=== PATIENT | female | born 1995 | race Caucasian/White ===

== ENCOUNTER → 2020-04-23 11:52 | Outpatient (BNVA) | payer OTHER, SELFPAY | PROVIDERS: PCP Pediatrics; Visit Provider Advanced Practice Midwife | DX: Z76.89 Persons encountering health services in other specified circumstances (principal) ==

== ENCOUNTER → 2021-06-04 15:49 | Outpatient (BNVA) | payer OTHER, SELFPAY | PROVIDERS: PCP Pediatrics; Visit Provider Advanced Practice Midwife ==

== ENCOUNTER → 2021-06-20 10:23 | Outpatient (BNVA) | payer OTHER, SELFPAY | PROVIDERS: Visit Provider Advanced Practice Midwife | DX: Z30.432 Encounter for removal of intrauterine contraceptive device (principal) | CPT/HCPCS: 58301 ==

== ENCOUNTER → 2021-09-26 16:02 | Outpatient (BNVA) | payer OTHER, SELFPAY | PROVIDERS: Visit Provider Advanced Practice Midwife | DX: Z30.09 Encounter for other general counseling and advice on contraception (principal); M79.89 Other specified soft tissue disorders ==

== ENCOUNTER → 2021-09-26 16:02 | Outpatient (BNVA) | payer OTHER, SELFPAY | PROVIDERS: Visit Provider Advanced Practice Midwife | DX: Z13.89 Encounter for screening for other disorder (principal) ==

== ENCOUNTER 2022-05-28 12:48 | Outpatient (REF) | payer OTHER, SELFPAY ==
[2022-05-28 17:27] LABS: CT PCR NOT DETECTED (Not Detect.); NG PCR NOT DETECTED (Not Detect.)
[2022-05-30 05:48] LABS: HPV mRNA E6/E7 rflx Not Detected (Not Detected)
== END 2022-05-28 12:49 | disposition home or self-care (01) ==
LOC: HO.LNP 12:48
PROVIDERS: Visit Provider Advanced Practice Midwife
DX: Z01.419 Encounter for gynecological examination (general) (routine) without abnormal findings (principal); Z11.51 Encounter for screening for human papillomavirus (HPV)
CPT/HCPCS: 87491; 87591; 87624; 88142

== ENCOUNTER 2024-03-29 14:06 | Outpatient (AMB) | payer OTHER, SELFPAY ==
--- NOTE | 2024-03-29 14:09 | MHC.OFFVIS ---
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 Doing well with no concerns. She tries to eat healthy and stays active with exercise walks at work. Irregular monthly menses, twice a month a week apart, up to two weeks at times. Admits to recent facial hair. Currently is sexually active long-term partner. Open to a future . Taking a multivitamin folic acid. She denies vaginal itching and irritation. STI screening offered; she accepts. Denies family history of breast, ovarian or colon cancer. Last pap smear 2021, negative. 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 Gender identity: Female Female Reproductive History Menstrual Age of Menarche: 13 Duration of menses: 6-7 days Date of last menstrual period: 03/26/24 control method: none Total pregnancies: 0 Date of last pap smear: 05/28/22 (neg pap and hpv) Review of Systems Const All systems reviewed & are unremarkable except as noted in HPI and below Reports as per HPI Eyes Reports no additional complaints ENT Reports no additional complaints Card Reports no additional complaints Resp Reports no additional complaints GI Reports as per HPI and Reports no additional complaints Reports as per HPI Musc Reports no additional complaints Skin/Breast Reports as per HPI Neuro Reports no additional complaints Psych Reports no additional complaints Endo Reports no additional complaints Avi/Lymph Reports no additional complaints Aller/Immun Reports no additional complaints Physical Exam Vital Signs: Last Vital Signs BP 108/70 03/29/24 14:10 BMI result Body Mass Index 37.4 Const General: cooperative, healthy appearing, no acute distress, well developed and alert Orientation/consciousness: patient oriented x3 HEENT Head: Yes normal to inspection Eyes General: appearance normal, both eyes and all related structures Neck Neck: Yes normal visual inspection Thyroid: Thyroid normal Chest Chest palpation & inspection: normal inspection of the chest and other (no puckering, dimpling, peau de orange, retraction, discharge, masses) Breast/axilla inspection: normal inspection of the breasts Breast/axilla palpation: normal palpation of the breasts Resp Effort & Inspection: normal respiratory effort GI Inspection: Yes normal to inspection Palpation (GI): Soft to palpation Rectal Exam - Female: deferred General: Yes bladder normal to palpation External Female Exam: normal external appearance and normal appearance of the urethra Speculum Exam - Vagina: normal appearance of the vagina, normal palpation, normal vaginal discharge and vaginal bleeding (Small amount) Speculum Exam - Cervix: normal appearance of the cervix and normal palpation Bimanual exam- vagina & uterus: normal bimanual exam, normal palpation, uterine size normal, bladder normal to palpation, normal palpation and non-tender Bimanual Exam- Adnexa, other: no masses OB/external & speculum: vaginal bleeding (Small amount) Skin General skin exam: no rashes or lesions noted Rashes: no rashes Neuro General: patient oriented x3 Cognition (Neuro): normal cognition Extrem General: Yes normal to inspection Psych Attitude: cooperative Thought process: Normal thought process present Assessment & Plan Assessment & Plan (1) Encounter for well woman exam with routine gynecological exam: Code(s): Z01.419 - Encounter for gynecological examination (general) (routine) without abnormal findings Category: Medical Plan: Discussed: Current recommendations for pap smears per ASCCP guidelines. Breast awareness and periodic breast exams. Maintain a healthy weight and lifestyle including a well balanced diet and routine exercise. The role of weight management and hormonal levels that affect cycle control. Continue with multivitamin w/ folic acid. She is not interested in control at this time. Plan labs, obtain TSH and CBC with PCP tomorrow okay to reveal on smart phone when back in the office pending ultrasound to discuss plan of care. [facility] services at [facility]/ [place] and other alternatives, if considering. Patient verbalizes understanding and agrees to the plan of care. She was given opportunity to ask questions and all questions were answered to the best of my ability. RTO in one year for annual marketing lead examination. This note is constructed using voice recognition software. While every effort has been made to ensure accuracy, residential sales executive errors may have been included. Orders: Orders Bacterial Vaginosis Panel Today N93.9 - Abnormal uterine and vaginal bleeding, unspecified CT NG by PCR Today N93.9 - Abnormal uterine and vaginal bleeding, unspecified PAP rfx HPV E6/E7 and 16 18/45 Today N93.9 - Abnormal uterine and vaginal bleeding, unspecified, Z01.419 - Encounter for gynecological examination (general) (routine) without abnormal findings 17 Hydroxyprogesterone Today L68.0 - Hirsutism, N92.6 - Irregular menstruation, unspecified Testosterone, Free/Total Today L68.0 - Hirsutism, N92.6 - Irregular menstruation, unspecified Prolactin Today L68.0 - Hirsutism, N92.6 - Irregular menstruation, unspecified US pelvic and transvaginal Today L68.0 - Hirsutism, N92.6 - Irregular menstruation, unspecified Coding Level of Care Code Est Pt Prev Care 18-39y(57176) Diagnoses Encounter for well woman exam with routine gynecological exam Z01.419
[2024-03-29 14:10] VITALS: BP 108/70; BMI 37.4
== END 2024-03-29 15:02 | disposition home or self-care (01) ==
PROVIDERS: Visit Provider Advanced Practice Midwife
DX: N93.9 Abnormal uterine and vaginal bleeding, unspecified (principal); Z01.419 Encounter for gynecological examination (general) (routine) without abnormal findings
CPT/HCPCS: 99395

== ENCOUNTER 2024-03-29 14:06 | Outpatient (REF) | payer OTHER, SELFPAY ==
[2024-03-30 13:41] LABS: CT PCR NOT DETECTED (Not Detect.); NG PCR NOT DETECTED (Not Detect.)
[2024-03-30 14:49] LABS: Bacterial Vaginosis PCR POSITIVE (Negative); Candida Group PCR NOT DETECTED (Not Detect); Candida glab krusei PCR NOT DETECTED (Not Detect); Trichomonas vaginalis PCR NOT DETECTED (Not Detect)
== END 2024-03-29 14:07 | disposition home or self-care (01) ==
LOC: HO.LAB 14:06
PROVIDERS: PCP Student in an Organized Health Care Education/Training Program; Visit Provider Advanced Practice Midwife
DX: Z01.419 Encounter for gynecological examination (general) (routine) without abnormal findings (principal); L68.0 Hirsutism; N93.9 Abnormal uterine and vaginal bleeding, unspecified; N92.6 Irregular menstruation, unspecified
CPT/HCPCS: 0352U; 81025; 87491; 87591; 87625; 88175; 99395

== ENCOUNTER 2024-03-29 14:50 | Outpatient (REF) | payer OTHER, SELFPAY ==
[2024-03-31 05:24] LABS: Prolactin 12.3 ng/mL
[2024-04-06 18:32] LABS: Testosterone, Free 4.6 pg/mL (0.1-6.4); Testosterone, Total 46 ng/dL (2-45)
== END 2024-03-29 14:51 | disposition home or self-care (01) ==
LOC: HO.LNP 14:50
PROVIDERS: Visit Provider Advanced Practice Midwife
DX: Z01.419 Encounter for gynecological examination (general) (routine) without abnormal findings (principal); N92.6 Irregular menstruation, unspecified; L68.0 Hirsutism; N93.9 Abnormal uterine and vaginal bleeding, unspecified
CPT/HCPCS: 83498; 84146; 84402; 84403

== ENCOUNTER 2024-04-04 14:51 | Outpatient (REF) | payer OTHER, SELFPAY | END 2024-04-04 14:52 | disposition home or self-care (01) | LOC: HO.US 14:51 | PROVIDERS: PCP Student in an Organized Health Care Education/Training Program; Visit Provider Advanced Practice Midwife | DX: N92.6 Irregular menstruation, unspecified (principal); L68.0 Hirsutism | CPT/HCPCS: 76830; 76856 ==

== ENCOUNTER 2024-08-04 15:03 | Outpatient (AMB) | payer OTHER, SELFPAY ==
--- NOTE | 2024-08-04 15:04 | A.OFFVIS_ITS ---
Vital Signs 08/04/24 15:53 BP 110/70 Intake Visit Reasons: Lab /Us follow up Paper Finisher: Paper Finisher Present Allergies desogestrel [From Apri] Adverse Reaction (Unknown, Verified 08/04/24 15:55) Hypertension ethinyl estradiol [From Apri] Adverse Reaction (Unknown, Verified 08/04/24 15:55) Hypertension etonogestrel [From Nexplanon] Adverse Reaction (Unknown, Verified 08/04/24 15:55) Rash apples Allergy (Unknown, Uncoded 08/04/24 15:04) Unknown dogs Allergy (Unknown, Uncoded 08/04/24 15:04) Unknown pollen Allergy (Unknown, Uncoded 08/04/24 15:04) Unknown Is last menstrual period known: Yes Last menstrual period: 07/09/24 HPI Comments Details: Patient here today for a follow up pelvic ultrasound and lab work to rule out PCOS. She has a history of irregular menses and facial hair growth. She reports currently she has an elevated red blood cell count at 16.1 and has to see a care team assistant. Had taken Apri in 2021, had HTN and leg edema. Skin rash over the Nexplanon x 2 attempts. Testosterone level was 45, slightly above range of 45. [facility] Medical History (Updated 08/04/24 @ 15:53 by Faith Walters CNM) IBS (irritable bowel syndrome) PCOS (polycystic ovarian syndrome) History of asthma Surgical History Hx of oral surgery Family History (Updated 08/04/24 @ 15:56 by SHIRIN Brito) Mother Asthma Father Asthma Myocardial infarction CAD (coronary artery disease) Maternal Grandfather Lung cancer Liver cancer Hypertension Maternal Grandmother Hypertension Atrial fibrillation Diabetes mellitus Paternal Grandmother Atrial fibrillation Social History Household Members: Significant Other Housing: Apartment Alcohol intake: current Alcohol intake frequency: a few times a month Patient Tobacco Use Status: Never used Tobacco service: No Current occupational status: employed 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 Gender identity: Female Female Reproductive History Menstrual Age of Menarche: 13 Date of last menstrual period: 07/09/24 Review of Systems Const All systems reviewed & are unremarkable except as noted in HPI and below Endo Reports no additional complaints Physical Exam Const General: cooperative, healthy appearing and no acute distress Psych Appearance: well kempt Attitude: cooperative Thought process: Normal thought process present Results Reviewed Results Reviewed: [address] [address] Ultrasound Report Signed Patient: Halima Corona MR#: [id number] : 1995 Acct:[id number] Age/Sex: 28 / F ADM Date: 04/04/24 Loc: HO.US Attending Dr: Faith Walters CNM Ordering Physician: Faith Walters CNM Date of Service: 04/04/24 Procedure(s): US pelvic and transvaginal Accession Number(s): [id number] cc: Alex Gonzalez MD; Faith Walters CNM~ EXAMINATION: US PELVIS CLINICAL INFORMATION: Irregular menses COMPARISON: None available. TECHNIQUE: Ultrasound of the pelvis is performed using both transabdominal and transvaginal transducers along with Doppler. Transvaginal imaging is performed due to inadequate visualization transabdominally. FINDINGS: Uterus: The uterus is anteverted and measures 6.5 x 2.8 x 3.2 cm. The double wall endometrial thickness is 6 mm. The uterus is smooth in contour and has normal myometrial echogenicity. No visible fibroid. Adnexa: Both ovaries are visualized. There is normal color flow to the adnexa. There is no ovarian torsion. There is no pelvic ascites or fluid collection. Right ovary measures 2.9 x 2.2 x 1.9 cm. There are multiple small follicular cysts which are predominantly subcortical. Left ovary measures 2.7 x 2.7 x 2.2 cm. There are greater than 10 small follicular cysts, predominantly subcortical and peripheral US/US pelvic and transvaginal IMPRESSION: 1. Normal-appearing uterus. 2. Multiple small follicular cysts in both ovaries. Correlate clinically for the possibility of polycystic ovarian syndrome. Electronically signed by: Álvaro Medina MD 05/29/2024 11:26 PM [facility] Dictated By: Álvaro Medina MD Signed By: <Electronically signed by Álvaro Medina MD in OV> 05/29/24 2326 DD/ 1515 TD/TT: 04/04/24 1525 Plaster Lather: IGOR Assessment & Plan Assessment & Plan (1) control counseling: Code(s): Z30.09 - Encounter for other general counseling and advice on contraception Category: Medical Plan: Reviewed options available for progesterone only. ParaGard IUD would not benefit cycle. (2) PCOS (polycystic ovarian syndrome): Code(s): E28.2 - Polycystic ovarian syndrome Category: Medical Plan: Discussed: Diagnosis of PCOS. Treatment options reviewed. Plan Reviewed lab work and ultrasound findings along with her symptoms consistent with PCOS diagnosis. Due to history of side effects with control and medical concerns for hematology evaluation, recommend she not initiate progesterone only pills at time. Continue use of condoms. Strongly advised to make her appointments with the care team assistant as recommended. Consider in the future referral to [facility] for information security systems instructor Department for a medically complex patients. The patient expressed understanding and agreement with the plan of care. All of her questions and concerns were addressed to the best of my ability. This note is constructed using voice recognition software. While every effort has been made to ensure accuracy, electrician supervisor errors may have been included. Coding Level of Care Code Est Pt Level 3 (01549) Diagnoses control counseling Z30. PCOS (polycystic ovarian syndrome) E28.2
[2024-08-04 15:53] VITALS: BP 110/70
--- OUTSIDE RECORDS SUMMARY | 2024-08-04 18:21 | XMS_ITS | Data Portability ---
Author Organization [facility], [address] Address [address] [place] [address] Assessment No assessment recorded. Plan of Treatment Reminders Order Date Submit Date Provider Last Modified By Organization Details Last Modified Time Details Appointments None recorded. Lab rapid strep group A, throat 2022 023 [facility], [address] [place], [address], 3 15:14:41 SARS CoV 2 (COVID-19) Ag, QL, IA, upper respiratory specimen [address] [address], [address] [place], [address], 3 15:14:42 urinalysis, dipstick 2022 023 [email or web address] [address] [address], [address] [place], [address], 3 13:41:52 rapid flu (A+B) 2022 023 [email or web address] [address] [address], [address] [place], [address], 3 13:41:52 Referral None recorded. Procedures None recorded. Surgeries None recorded. Imaging None recorded. Medication Orders tobramycin 0.3 %-dexametha sone 0.05 % eye drops,suspe nsion 2022 023 [facility]/Pharmacy #[id number], [address] [facility] [place], [address], 19:55:09 amoxicillin 875 mg-potassiu m clavulanate 125 mg tablet 2022 023 NIKOLE [facility]/Pharmacy #[id number], [address] [facility] [place], [address], 15:14:43 prednisone 10 mg tablet 2022 023 [email or web address] [facility]/Pharmacy #[id number], [address] [facility] [place], [address], 13:22:03 albuterol sulfate 2.5 mg/3 mL (0.083 %) solution for nebulizatio n 2022 023 [email or web address] [facility]/Pharmacy #[id number], [address] [place], [address], 13:43:00 Patient TargetsNo targets recorded. Patient Instructions Encounter Date Encounter Id Patient Instructions Last Modified By Organization Details Last Modified Time 08/15/2022 [id number] viral infections : care instructions [email or web address] Not available 08/15/2022 13:43:23 05/13/2023 [id number] pinkeye: care instructions Not available 05/13/2023 15:14:38 sore throat: car e instructions Not available 05/13/2023 15:14:39 tonsillitis: car e instructions Not available 05/13/2023 15:14:38 Reason for Referral None Reported. Results Created Date Observation Date Name Description Value Unit Range Abnormal Flag Note LastModifiedBy Organization Detail LastModifiedTime 08/16/1908/15/2022 rapid flu (A+B) Unknown Analyte Normal = Negati ve Not Available [address] [place], [address], 08/15/2022 12:39:38 08/16/19 23 08/15/2022 rapid flu (A+B) Unknown Analyte negati ve Not Available [facility] [address] [place], [address], 08/15/2022 12:39:38 08/16/19 23 08/15/2022 rapid flu (A+B) Unknown Analyte Normal = Negati ve Not Available [facility] [address] [place], [address], 08/15/2022 12:39:38 08/16/1908/15/2022 rapid flu (A+B) Unknown Analyte negati ve Not Available [facility] [address] [place], [address], 08/15/2022 12:39:38 08/16/1908/15/2022 urina lysis , dipst ick Unknown Analyte Normal = light yellow Not Available [facility] [address] [place], [address], 08/15/2022 12:39:30 08/16/1908/15/2022 urina lysis , dipst ick Unknown Analyte Yellow Not Available [address] [place] [address] [address] [place], [address], 08/15/2022 12:39:30 08/16/1908/15/2022 urina lysis , dipst ick Unknown Analyte Normal = clear Not Available [facility] [address] [place], [address], 08/15/2022 12:39:30 08/16/1908/15/2022 urina lysis , dipst ick Unknown Analyte Clear Not Available [address] [facility] [address] [place], [address], 08/15/2022 12:39:30 08/16/19 23 08/15/2022 urina lysis , dipst ick Unknown Analyte Normal = negati ve Not Available [address] [place], [address], 08/15/2022 12:39:30 08/16/19 23 08/15/2022 urina lysis , dipst ick Unknown Analyte Negati ve Not Available [address] [place], [address], 08/15/2022 12:39:30 08/16/1908/15/2022 urina lysis , dipst ick Unknown Analyte Normal = Negati ve Not Available [address] [place], [address], 08/15/2022 12:39:30 08/16/19 23 08/15/2022 urina lysis , dipst ick Unknown Analyte Negati ve Not Available [address] [place], [address], 08/15/2022 12:39:30 08/16/19 23 08/15/2022 urina lysis , dipst ick Unknown Analyte Normal = Negati ve Not Available [address] [place], [address], 08/15/2022 12:39:30 08/16/19 23 08/15/2022 urina lysis , dipst ick Unknown Analyte Negati ve Not Available [address] [place], [address], 08/15/2022 12:39:30 08/16/19 23 08/15/2022 urina lysis , dipst ick Unknown Analyte Normal = 1.010, 1.015, 1.020 Not Available [address] [place], [address], 08/15/2022 12:39:30 08/16/1908/15/2022 urina lysis , dipst ick Unknown Analyte 1.[address] [facility] [address] [place], [address], 08/15/2022 12:39:30 08/16/1908/15/2022 urina lysis , dipst ick Unknown Analyte Normal = Negati ve Not Available [facility] [address] [place], [address], 08/15/2022 12:39:30 08/16/1908/15/2022 urina lysis , dipst ick Unknown Analyte Negati ve Not Available [address] [place], [address], 08/15/2022 12:39:30 08/16/19 23 08/15/2022 urina lysis , dipst ick Unknown Analyte Normal = 6.5, 7.0, 7.5, 8.0 Not Available [facility] [address] [place], [address], 08/15/2022 12:39:30 08/16/1908/15/2022 urina lysis , dipst ick Unknown Analyte 5.[address] [facility] [address] [place], [address], 08/15/2022 12:39:30 08/16/1908/15/2022 urina lysis , dipst ick Unknown Analyte Normal = Negati ve Not Available [facility] [address] [place], [address], 08/15/2022 12:39:30 08/16/1908/15/2022 urina lysis , dipst ick Unknown Analyte Negati ve Not Available [address] [place], [address], 08/15/2022 12:39:30 08/16/1908/15/2022 urina lysis , dipst ick Unknown Analyte Normal = 0.2, 1.0 Not Available [facility] [place], [address], 08/15/2022 12:39:30 08/16/1908/15/2022 urina lysis , dipst ick Unknown Analyte 0.2 E.U./d L Not Available [facility] [address] [place], [address], 08/15/2022 12:39:30 08/16/1908/15/2022 urina lysis , dipst ick Unknown Analyte Normal = Negati ve Not Available [facility] [address] [place], [address], 08/15/2022 12:39:30 08/16/1908/15/2022 urina lysis , dipst ick Unknown Analyte Negati ve Not Available [address] [place], [address], 08/15/2022 12:39:30 08/16/1908/15/2022 urina lysis , dipst ick Unknown Analyte Normal = Negati ve Not Available [address] [place], [address], 08/15/2022 12:39:30 08/16/1908/15/2022 urina lysis , dipst ick Unknown Analyte Negati ve Not Available [facility] [place], [address], 08/15/2022 12:39:30 05/13/20 23 05/13/2023 SARS CoV 2 (COVI D-19) Ag, QL, IA, upper respi rator y speci men Unknown Analyte negati ve Not Available [address] [place], [address], 05/13/2023 13:24:13 05/13/20 23 05/13/2023 SARS CoV 2 (COVI D-19) Ag, QL, IA, upper respi rator y speci men Unknown Analyte yes Not Available [address] [place] [address] [address] [place], [address], 05/13/2023 13:24:13 05/13/20 23 05/13/2023 rapid strep group A, throa t Unknown Analyte negati ve Not Available [facility] [place], [address], 05/13/2023 13:24:04 05/13/20 23 05/13/2023 rapid strep group A, throa t Unknown Analyte yes Not Available [address] [place] [address] [address] [place], [address], 05/13/2023 13:24:04 Result Notes None recorded. Problems Name Problem SNOMED Code Status Onset Date Resolution Date Notes Provider Name and Address Organization Details Recorded Time Asthma 420753580 Active Zohra rush, PA - [facility] 3 13:22:40 Irritable bowel syndrome 69391082 Active Zohra rush, PA - [facility] 3 13:22:55 Problem Notes None recorded. Medical Equipment None Reported. Allergies Allergen ID Allergen Name Allergen Category Reaction Reaction Severity Criticality Documentation Date Start Date Code Code System Note Provider Name and Address Organization Details Recorded Time 233782 apple extract food Not available Not available Not available 08/15/2022 20153 65 RxNorm Luciano rush, PA - [facility] 3 12:37:00 No known drug allergies Medications Name Sig Start Date Stop Date Status Note LastModified by Organization Details LastModified Time prednisone 10 mg tablet PLEASE SEE ATTACHED FOR DETAILED DIRECTION S 05/13 completed Not Available Not Available Not Available albuterol sulfate 2.5 mg/3 mL (0.083 %) solution for nebulizatio n INHALE 3 ML VIA NEBULIZER 3 TIMES A DAY FOR 10 DAYS active Not Available Not Available No t Available Apri 0.15 mg-0.03 mg tablet TAKE 1 TABLET BY MOUTH EVERY DAY 05/13 completed Not Available Not Available Not Available epinephrine 0.3 mg/0.3 mL injection, auto-inject or NEEDED FOR ANAPHYLAX IS. KEEP ON HAND AT ALL TIMES. active Not Available Not Available No t Available albuterol sulfate HFA 90 mcg/actuati on aerosol inhaler INHALE 2 PUFFS BY MOUTH EVERY 4 HOURS NEEDED active Not Available Not Available No t Available amoxicillin 875 mg-potassiu m clavulanate 125 mg tablet Take 1 tablet every 12 hours by oral route for 10 days. 2022 active Not Available Not Available Not Avai lable Symbicort 160 mcg-4.5 mcg/actuati on HFA aerosol inhaler INHALE 2 PUFFS TWICE A DAY 05/13 completed Not Available Not Available Not Available Tobradex ST 0.3 %-0.05 % eye drops,suspe nsion INSTILL 1 DROP INTO AFFECTED EYE(S) EVERY 6 HOURS FOR 5 DAYS 2022 active Not Available Not Available Not Avai lable Incruse Ellipta 62.5 mcg/actuati on powder for inhalation INHALE 1 PUFF DAILY 05/13 completed Not Available Not Available Not Available Vitals Date Recorded Body height Body mass index (BMI) Body weight Respiratory rate Body temperature Oxygen saturation Oxygen saturation in Arterial blood by Pulse oximetry Heart rate Pain severity - 0-10 verbal numeric rating [Score] - Reported Systolic blood pressure Diastolic blood pressure Provider Name and Address Organization Details Last Updated DateTime 3 152.4 cm 36.1 kg/m2 27237.5 9 g 16 /min 98.2 [degF] 97 % 97 % 98 /min 7 123 mm[Hg] 82 mm[Hg] Zohra Emeterio PA - [facility] 13:26:35 Date Recorded Body height Body mass index (BMI) Body weight Provider Name and Address Organization Details Last Updated DateTime 08/15/2022 152.4 cm 35.2 kg/m2 62894.63 g Luciano Gifford PA - [facility] 08/15/2022 12:36:42 Social History Question Answer Notes LastModified by Organizat ion Details LastModified Time Tobacco Smoking Status Never Smoker Zohra rush PA - [facility] 05/13/2023 13:23:24 What Is Your Level Of Alcohol Consumption? Occasional [email or web address] Information not available 05/13/2023 Have You Had A Flu Shot This Season? Yes Information not available 05/13/2023 What Was The Date Of Your Most Recent Tobacco Screening? 05/13/2023 [email or web address] Information not available 05/13/2023 Do You Use Any Illicit Or Recreational Drugs? No Information not available 05/13/2023 Have You Recently Traveled Abroad? No Information not available 05/13/2023 Do You Or Have You Ever Used Any Other Forms Of Tobacco Or Nicotine? No [email or web address] Information not available 05/13/2023 Sex: Unknown Functional Status None recorded. Mental Status None recorded. Family History Relationship Description Onset Age of this Age Resolved Age Notes LastModified by Organization Details LastModified Time Father No current problems or disability [email or web address] Not available 05/13 13:23:00 Mother No current problems or disability [email or web address] Not available 05/13 13:23:00 Medical History No medical history recorded. Gynecological History Statement/Question Response Date of LMP 03/18/2023 Is there any chance of ? No LMP Approximate Obstetrics History GPAL:G 0 P 0 0 0 0 Immunizations Vaccine Type Date Status Note Provider Nam e and Address Organization Details Recorded Time Influenza, MDCK, quadrivalent, PF 3 completed Zohra rush PA - [facility] 05/13/2023 13:21:29 meningococcal B, recombinant 9 completed Luciano rush PA - [facility] 08/15/2022 12:36:49 Influenza, MDCK, quadrivalent, PF 8 completed Luciano Ирина null, PA - [facility] 08/15/2022 12:36:49 COVID-19, mRNA, LNP-S, PF, 30 mcg/0.3 mL dose 1 completed Luciano Ирина null, PA - [facility] 08/15/2022 12:36:49 COVID-19, mRNA, LNP-S, PF, 30 mcg/0.3 mL dose 1 completed Luciano Ирина null, PA - [facility] 08/15/2022 12:36:49 Tdap 8 completed Luciano Ирина null, PA - [facility] 08/15/2022 12:36:49 Meningococcal MCV4O 9 completed Luciano Ирина null, PA - [facility] 08/15/2022 12:36:49 Influenza, split virus, quadrivalent, PF 1 completed Luciano Ирина null, PA - [facility] 08/15/2022 12:36:49 Influenza, split virus, quadrivalent, PF 5 completed Luciano Ирина null, PA - [facility] 08/15/2022 12:36:49 Influenza, split virus, quadrivalent, PF 9 completed Luciano Ирина null, PA - [facility] 08/15/2022 12:36:49 Past Encounters Encounter ID Performer Location Encounter Start Date Encounter Closed Date Diagnosis/Indication Diagnosis SNOMED-CT Code Diagnosis ICD10 Code Diagnosis Note [id number] [address] [address] [place] [address] 12/11/2021 08:14:36 12/11/2021 09:46:20 [id number] [place] [address] [facility] [address] [place] [address] 08/15/2022 11:14:51 08/15/2022 13:46:35 Acute asthma 231620270 J45.901 Viral syndrome 683250721 B34.9 [id number] Raisa Bradley, [employer] [address] [address] [facility] TIFFANIE hahn [address] 05/13/2023 13:03:04 05/13/2023 15:17:27 Acute tonsillitis 07647708 J03.90 Tonsilliti s is an infection of the tonsils that is caused by bacteria or a virus. The tonsils are in the back of the throat and are part of the immune system. Tonsilliti s typically lasts from a few days up to a couple of weeks.Tons illitis caused by a virus goes away on its own. Tonsilliti s caused by the bacteria that causes strep throat is treated with antibiotic s.You and your doctor may consider surgery to remove the tonsils (tonsillec aditya) if you have serious complicati ons or repeat infections .Follow-up care is a sheets part of your treatment and safety. Be sure to make and go to all appointmen ts, and call your doctor if you are having problems. It's also a good idea to know your test results and keep a list of the medicines you take. Acute conj unctivitis of bilateral eyes [id number] 03897 H10.33 Pinkeye is redness and swelling of the eye surface and the conjunctiv a (the lining of the eyelid and the covering of the white part of the eye). Pinkeye is also called conjunctiv itis. Pinkeye is often caused by infection with bacteria or a virus. Dry air, allergies, smoke, and chemicals are other common causes.Pin keye often gets better on its own in 7 to 10 days. Antibiotic s only help if the pinkeye is caused by bacteria. Pinkeye caused by infection spreads easily. If an allergy or chemical is causing pinkeye, it will not go away unless you can avoid whatever is causing it.Follow- up care is a sheets part of your treatment and safety. Be sure to make and go to all appointmen ts, and call your doctor if you are having problems. It's also a good idea to know your test results and keep a list of the medicines you take. Health Concerns Section Related Observation LastModified by Organization Detai ls LastModified Time None Recorded Concern Status LastModified by Organization Details LastModified Time None Recorded Advance Directives Directive None Recorded Payers Encounter Date Sequence Insurance Name Policy Number Policy Cobos Covered Member ID Cobos Member ID Guarantor Name 12/11/2021 1 [facility] (MEDICAID HMO) [id number] Halima Robertyle [id number] Halima Corona 08/15/2022 1 [facility] PL[facility] (MEDICAID HMO) [id number] Halima Robertyle [id number] Halima Corona 05/13/2023 1 [facility] [id number] Halima Robertyle [id number] Halima Corona Notes Date Note Type Note Provider Name and Address Organization Details Recorded Time 3 text/html CoughReported bypatient.Severity:moderat e Duration:intermittent Pratibha Max MD [address] [place], [address], [place] PA - [facility] 08/15/2022 13:45:46 3 text/html Sore throatReported bypatient.Source of patient informationInformation obtained from patient; Patient arrived at Urgent Care ambulatory Location:throat; head Severity:severe Quality:sharp; hurts to swallow Onset/Timin weeks Associated Symptoms:no sputum production; no shortness of breath; no wheezing; no vomiting; no nausea; No hoarseness;sore throat;congestion;coughing ;sinus pain/ congestion Context:no foreign travel; non-smoker;sick contact Modifying Factors:OTC medication no relief* Patient presents with sore throat, cough, nasal congestion started last week , yesterday states that both eyes redness ,itching, and discharge, right worst than the left side. 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
--- OUTSIDE RECORDS SUMMARY | 2024-08-04 18:22 | XMS_ITS | Clinical Summary ---
Author Organization Patient Business Ser [facility] Address [address] [place] [address] Care Team Providers Care Chemical Recovery Operator Name Role Phone Alex Gonzalez MD Primary Care Provider [phone] Social History Tobacco Use Types Packs/Day Years Used Date Smoking Tobacco: Never Assessed Comments Unknown Sex and Gender Information Value Date Recorded Sex Assigned at Not on file Legal Sex Female 6:28 AM EST Gender Identity Not on file Sexual Orientation Not on file Last Filed Vital Signs Vital Sign Reading Time Taken Comments Blood Pressure 110/82 03/30/2024 9:25 AM EDT Pulse 107 03/30/2024 9:25 AM EDT Temperature - - Respiratory Rate - - Oxygen Saturation - - Inhaled Oxygen Concentration - - Weight 88.9 kg (196 lb) 03/30/2024 9:25 AM EDT Height 152.4 cm (5') 03/30/2024 9:25 AM EDT Body Mass Index 38.28 03/30/2024 9:25 AM EDT Plan of Treatment Health Maintenance Due Date Last Done Comments DTaP,Tdap,and Td Vaccines (1 - Tdap) 2014 Hepatitis B Vaccines (1 of 3 - 19+ 3-dose series) 2014 Pneumococcal Vaccine: Pediat rics (0 to 5 Years) and At-Risk Patients (6 to 64 Years) (1 of 2 - PCV) 2014 Cervical Cancer Screening: P ap Smear 2016 COVID-19 Vaccine ( - 2023-2 5 season) 2024 Influenza Vaccine (#1) 2024 Depression Screening 04/11/2024 HIV Screening 04/11/2024 Hepatitis C Screening 04/11/2024 Social Influencers of Health Screening 04/11/2024 Cholesterol Screening (Lipid Panel) 03/30/2029 03/30/2024 HIB Vaccines Aged Out No longer eligi ble based on patient's age to complete this topic HPV Vaccines Aged Out No longer eligi ble based on patient's age to complete this topic Hepatitis A Vaccines Aged Out No long er eligible based on patient's age to complete this topic IPV Vaccines Aged Out No longer eligi ble based on patient's age to complete this topic MMR Vaccines Aged Out No longer eligi ble based on patient's age to complete this topic Meningococcal ACWY Vaccine Aged Out N o longer eligible based on patient's age to complete this topic Meningococcal B Vacine Aged Out No lo nger eligible based on patient's age to complete this topic RSV Immunization Patients Un darrick 20 months Aged Out No longer eligible b ased on patient's age to complete this topic Varicella Vaccines Aged Out No longer eligible based on patient's age to complete this topic Care Teams Chemical Recovery Operator Relationship Specialty Start Date End Date Alex Gonzalez MD [address] [place] [address] [place] [address] PCP - General 10/27/23
== END 2024-08-04 16:22 | disposition home or self-care (01) ==
LOC: HO.HWS 15:03
PROVIDERS: PCP Student in an Organized Health Care Education/Training Program; Visit Provider Advanced Practice Midwife
DX: Z30.09 Encounter for other general counseling and advice on contraception (principal); E28.2 Polycystic ovarian syndrome
CPT/HCPCS: 99213

== ENCOUNTER → 2024-08-04 15:03 | Outpatient (BNVA) | payer OTHER, SELFPAY | PROVIDERS: PCP Student in an Organized Health Care Education/Training Program; Visit Provider Advanced Practice Midwife | DX: Z30.09 Encounter for other general counseling and advice on contraception (principal); E28.2 Polycystic ovarian syndrome | CPT/HCPCS: 99212 ==